=== PATIENT | male | born 1940 | race Caucasian/White ===

== ENCOUNTER 2018-05-21 00:22 | Inpatient (IN) | payer MEDICARE ==
[2018-05-21] MEDS: NS 1,000 ML IV ×2 (02:21→05:16)
[2018-05-21 02:27] LABS: BASO % 0.2 % (0.0-1.0); HEMATOCRIT 38.8 % (42.0-52.0); HEMOGLOBIN 13.1 g/dl (13.5-17.5); IMMATURE GRANULOCYTE % 0.3 % (0-3.0); LYMPH # 0.6 10^3/uL (1.5-4.5); LYMPH % 5.4 % (24.0-44.0); MEAN CORPUSCULAR HEMOGLOBIN 31.1 pg (27.0-33.0); MEAN CORPUSCULAR HGB CONC 33.8 g/dl (32.0-36.5); MEAN CORPUSCULAR VOLUME 92.2 fl (80.0-96.0); MONO # 0.7 10^3/uL (0.0-0.8); MONO % 6.6 % (0.0-5.0); NEUTROPHILS # 9.8 10^3/uL (1.8-7.7); NEUTROPHILS % 87.5 % (36.0-66.0); PLATELET COUNT, AUTOMATED 188 10^3/uL (150-450); RED BLOOD COUNT 4.21 10^6/uL (4.30-6.10); RED CELL DISTRIBUTION WIDTH 15.5 % (11.5-14.5); WHITE BLOOD COUNT 11.2 10^3/uL (4.0-10.0)
[2018-05-21 03:12] LABS: ALBUMIN 3.3 GM/DL (3.2-5.2); ALKALINE PHOSPHATASE 74 U/L (45-117); ALT/SGPT 8 U/L (12-78); ANION GAP 9 MEQ/L (8-16); AST/SGOT 12 U/L (7-37); BILIRUBIN,DIRECT < 0.1 MG/DL (0.0-0.2); BILIRUBIN,TOTAL 0.7 MG/DL (0.2-1.0); BLOOD UREA NITROGEN 11 MG/DL (7-18); CALCIUM LEVEL 8.7 MG/DL (8.8-10.2); CARBON DIOXIDE LEVEL 27 MEQ/L (21-32); CHLORIDE LEVEL 101 MEQ/L (98-107); CREATININE FOR GFR 0.77 MG/DL (0.70-1.30); GLOMERULAR FILTRATION RATE > 60.0 (>42); GLUCOSE, FASTING 96 MG/DL (70-100); LIPASE 117 U/L (73-393); POTASSIUM SERUM 4.5 MEQ/L (3.5-5.1); SODIUM LEVEL 137 MEQ/L (136-145); TOTAL PROTEIN 6.3 GM/DL (6.4-8.2)
[2018-05-21 04:15] LABS: CPK CREATINE PHOSPHOKINASE 60 U/L (39-308); MB/CK RELATIVE INDEX 1.67 (< OR =4); TROPONIN I < 0.02 NG/ML (< 0.10)
[2018-05-21] MEDS: D5W/0.45% SODIUM CHLORIDE 1,000 ML IV (05:30)
[2018-05-21 05:44] LABS: KETONE, URINE AUTO RFX 1+ mg/dL (NEGATIVE); LEUKOCYTE ESTERASE UR AUTO RFX NEGATIVE (NEGATIVE); MUCUS, URINE RFX SMALL (NEGATIVE); NITRITE, URINE AUTO RFX NEGATIVE (NEGATIVE); RBC, URINE AUTO RFX 0 /HPF (0-3); SQUAM EPITHELIAL CELL UR AURFX 0 /HPF (0-6); WBC, URINE AUTO RFX 1 /HPF (0-3)
[2018-05-21] MEDS ORDERED: HEPARIN SOD (PORCINE) 5000 UNITS/ML VIAL SC (06:00)
[2018-05-21] MEDS ORDERED: LEVOTHYROXINE 50MCG TABLET (0.05MG) PO (09:00)
[2018-05-21] MEDS: CIALIS 5 MG PO (09:00)
[2018-05-21] MEDS: ONDANSETRON 4MG/2ML VIAL (J2405) IV (09:06)
[2018-05-21] MEDS: MIRALAX *UNIT DOSE* 17GM PACKET PO ×2 (09:08→20:44)
[2018-05-21] MEDS: SINEMET 25-100 MG TAB PO ×2 (09:13→20:44)
[2018-05-21] MEDS: APIXABAN 5 MG TAB (ELIQUIS) PO ×2 (09:14→20:44)
[2018-05-21] MEDS: PANTOPRAZOLE 40MG TAB (PROTONIX) PO (09:17)
[2018-05-21] MEDS: LEVOTHYROXINE 75MCG TABLET (0.075MG) PO (09:17)
[2018-05-21] MEDS: PRAVASTATIN 20 MG TAB PO (09:19)
[2018-05-21] MEDS: NYSTATIN 100,000 UNITS/GM TOPICAL PWD 15 GM TOP ×2 (10:25→20:44)
[2018-05-21 13:57] LABS: FOLATE 2.5 NG/ML (>5.4)
[2018-05-22] MEDS: LEVOTHYROXINE 75MCG TABLET (0.075MG) PO (05:06)
[2018-05-22] MEDS: ONDANSETRON 4MG/2ML VIAL (J2405) IV (06:11)
[2018-05-22 07:40] LABS: HEMATOCRIT 35.6 % (42.0-52.0); HEMOGLOBIN 11.9 g/dl (13.5-17.5); MEAN CORPUSCULAR HEMOGLOBIN 30.7 pg (27.0-33.0); MEAN CORPUSCULAR HGB CONC 33.4 g/dl (32.0-36.5); PLATELET COUNT, AUTOMATED 170 10^3/uL (150-450); RED BLOOD COUNT 3.87 10^6/uL (4.30-6.10); RED CELL DISTRIBUTION WIDTH 15.7 % (11.5-14.5); WHITE BLOOD COUNT 6.8 10^3/uL (4.0-10.0)
[2018-05-22 08:00] LABS: ANION GAP 9 MEQ/L (8-16); BLOOD UREA NITROGEN 9 MG/DL (7-18); CALCIUM LEVEL 8.4 MG/DL (8.8-10.2); CARBON DIOXIDE LEVEL 26 MEQ/L (21-32); CHLORIDE LEVEL 99 MEQ/L (98-107); CREATININE FOR GFR 0.74 MG/DL (0.70-1.30); GLOMERULAR FILTRATION RATE > 60.0 (>42); GLUCOSE, FASTING 107 MG/DL (70-100); POTASSIUM SERUM 4.1 MEQ/L (3.5-5.1); SODIUM LEVEL 134 MEQ/L (136-145)
[2018-05-22] MEDS: MIRALAX *UNIT DOSE* 17GM PACKET PO ×2 (08:42→21:36)
[2018-05-22] MEDS: APIXABAN 5 MG TAB (ELIQUIS) PO ×2 (08:42→21:36)
[2018-05-22] MEDS: FLEET ENEMA PR (08:42)
[2018-05-22] MEDS: SINEMET 25-100 MG TAB PO ×2 (08:43→21:37)
[2018-05-22] MEDS: PRAVASTATIN 20 MG TAB PO (08:43)
[2018-05-22] MEDS: PANTOPRAZOLE 40MG TAB (PROTONIX) PO (08:43)
[2018-05-22] MEDS: INFLUENZA VIRUS VACCINE HIGH DOSE 0.5 ML SYRINGE (90662) IM (08:49)
[2018-05-22] MEDS: FOLIC ACID 1 MG TAB PO (09:00)
[2018-05-22] MEDS: CIALIS 5 MG PO (09:00)
[2018-05-22] MEDS: NYSTATIN 100,000 UNITS/GM TOPICAL PWD 15 GM TOP ×2 (10:24→21:37)
[2018-05-22] MEDS ORDERED: MORPHINE 10MG/0.5ML ORAL CONCENTRATE SOLUTION U/D SL (12:30)
[2018-05-22] MEDS ORDERED: LORazepam 2 MG/ML VIAL (J2060) IV (12:30)
[2018-05-22] MEDS ORDERED: SCOPOLAMINE 1MG TRANSDERMAL PATCH TOP (12:30)
[2018-05-22] MEDS ORDERED: MORPHINE 4 MG/ML 1ML VIAL/SYRINGE (J2270) IV (12:30)
[2018-05-22] MEDS: ALPRAZolam 0.5 MG TAB PO ×2 (17:05→21:37)
[2018-05-23] MEDS: LEVOTHYROXINE 75MCG TABLET (0.075MG) PO (06:21)
[2018-05-23] MEDS: MIRALAX *UNIT DOSE* 17GM PACKET PO ×2 (08:53→22:19)
[2018-05-23] MEDS: NYSTATIN 100,000 UNITS/GM TOPICAL PWD 15 GM TOP ×2 (08:54→22:20)
[2018-05-23] MEDS: PANTOPRAZOLE 40MG TAB (PROTONIX) PO (08:54)
[2018-05-23] MEDS: FOLIC ACID 1 MG TAB PO (08:54)
[2018-05-23] MEDS: APIXABAN 5 MG TAB (ELIQUIS) PO ×2 (08:54→22:20)
[2018-05-23] MEDS: SINEMET 25-100 MG TAB PO ×2 (08:54→22:20)
[2018-05-23] MEDS: ALPRAZolam 0.5 MG TAB PO (22:20)
[2018-05-23] MEDS: ACETAMINOPHEN TAB 650MG DOSE (2X325MG) PO (23:31)
[2018-05-24] MEDS: LEVOTHYROXINE 75MCG TABLET (0.075MG) PO (05:45)
[2018-05-24] MEDS: MIRALAX *UNIT DOSE* 17GM PACKET PO ×2 (08:11→21:00)
[2018-05-24] MEDS: APIXABAN 5 MG TAB (ELIQUIS) PO ×2 (08:12→21:20)
[2018-05-24] MEDS: NYSTATIN 100,000 UNITS/GM TOPICAL PWD 15 GM TOP ×2 (08:12→21:20)
[2018-05-24] MEDS: PANTOPRAZOLE 40MG TAB (PROTONIX) PO (08:12)
[2018-05-24] MEDS: FOLIC ACID 1 MG TAB PO (08:12)
[2018-05-24] MEDS: SINEMET 25-100 MG TAB PO ×2 (08:12→21:20)
[2018-05-24] MEDS: MAGNESIUM CITRATE 300 ML BTL PO (09:38)
[2018-05-24] MEDS: ALPRAZolam 0.5 MG TAB PO (21:20)
[2018-05-24] MEDS: ACETAMINOPHEN TAB 650MG DOSE (2X325MG) PO (21:22)
[2018-05-25] MEDS: LEVOTHYROXINE 75MCG TABLET (0.075MG) PO (05:33)
[2018-05-25] MEDS: PANTOPRAZOLE 40MG TAB (PROTONIX) PO (08:21)
[2018-05-25] MEDS: FOLIC ACID 1 MG TAB PO (08:21)
[2018-05-25] MEDS: SINEMET 25-100 MG TAB PO (08:21)
[2018-05-25] MEDS: APIXABAN 5 MG TAB (ELIQUIS) PO (08:22)
[2018-05-25] MEDS: MIRALAX *UNIT DOSE* 17GM PACKET PO (08:23)
[2018-05-25] MEDS: NYSTATIN 100,000 UNITS/GM TOPICAL PWD 15 GM TOP (09:00)
== END 2018-05-25 14:32 | disposition hospice, home (50) | DRG 56 ==
LOC: M ED 00:22 → M ED INP 05:04 → M MS5PR 14:20
DX: G31.83 Neurocognitive disorder with Lewy bodies (principal); R09.2 Respiratory arrest; I48.0 Paroxysmal atrial fibrillation; E03.9 Hypothyroidism, unspecified; E78.5 Hyperlipidemia, unspecified; N40.0 Benign prostatic hyperplasia without lower urinary tract symptoms; F41.9 Anxiety disorder, unspecified; K59.00 Constipation, unspecified; F02.80 Dementia in other diseases classified elsewhere, unspecified severity, without behavioral disturbance, psychotic disturbance, mood disturbance, and anxiety; Z51.5 Encounter for palliative care; Z66 Do not resuscitate; Z79.01 Long term (current) use of anticoagulants; Z79.899 Other long term (current) drug therapy